=== PATIENT | male | born 1990 | race Caucasian/White ===

== ENCOUNTER 2024-06-19 20:40 | Emergency (ER) | payer OTHER, SELFPAY ==
--- NOTE | ~2024-06-19 | XR_ITS ---
EXAMINATION: XR WRIST, RIGHT CLINICAL INFORMATION: Concern for foreign body COMPARISON: None available. TECHNIQUE: PA, lateral, oblique, and scaphoid views of the right wrist. FINDINGS: Soft tissue laceration of the ulnar side of the wrist. No radiopaque foreign body. No osseous abnormality. Bone and joint are normal. XR/XR wrist RT 2V IMPRESSION: Soft tissue laceration of the ulnar side of the wrist. No radiopaque foreign body. Electronically signed by: Rg Abdalla MD 06/19/2024 09:41 PM EDT
[2024-06-19 20:49] VITALS: BP 123/54; PULSE 85; RESP 16; TEMP 36.6; O2SAT 95; BMI 25.1
--- NOTE | 2024-06-19 20:49 | ED.WOUNDLAC ---
HPI - Wound/Laceration General Chief Complaint: Wound/Laceration Stated Complaint: rt arm laceration/broken glass Time Seen by Provider: 06/19/24 22:05 Related Data Allergies Allergy/AdvReac Type Severity Reaction Status Date / Time amoxicillin Allergy Hives Verified 06/19/24 20:51 Penicillins Allergy Hives Verified 06/19/24 20:51 shellfish derived Allergy Shortness Verified 06/19/24 20:51 of Breath PMFSH Social History Social History Advance Directives: No Advance Directives Information Provided: No Physical Exam Vital Signs: Vital Signs: Last Vital Signs Temp 98.9 F 06/19/24 23:10 Pulse 75 06/19/24 23:10 Resp 16 06/19/24 23:10 BP 107/69 06/19/24 23:10 Pulse Ox 96 06/19/24 23:10 O2 Del Method Room Air 06/19/24 23:10 BMI result Body Mass Index 25.1 Course Course Course Narrative: This is a Rapid Medical Exam performed in triage by Amanda Smith PA-C. Full HPI, ROS and PE to be performed by primary ED provider. 34 yo M presenting to the ED c/o laceration to RUE s/p cleaning metal container [employer]. Unknown in glass in wound. Tetanus unknown. not on AC PE: +1.5cm lac to R wrist. +active bleeding Plan: XR, wound repair Medications Administered Discontinued Medications Generic Name Dose Route Start Last Admin Trade Name Freq PRN Reason Stop Dose Admin Lidocaine HCl 5 ml 06/19/24 22:29 06/19/24 22:32 Lidocaine Hcl 1 % Mpf 5 Ml Vial INFILTRATI 06/19/24 22:30 5 ml ONCE ONE Administration Discharge Plan Discharge Clinical Impression: Laceration Patient Disposition: Home, Self-Care Instructions: Laceration (ED) Additional Instructions: Local care as advised Suture removal in 10-14 days Interventions: ED Discharge Assessment Last Done: 06/19/24 23:10 Discharge Date/Time: 06/19/24 23:10 Print Language: Luxembourgish
[2024-06-19] MEDS: Lidocaine HCl 1 % MPF 5 ML VIAL INFILTRATI (22:32)
[2024-06-19 22:35] VITALS: BP 107/69; PULSE 75; RESP 16; TEMP 37.2; O2SAT 96
[2024-06-19 23:10] VITALS: BP 107/69; PULSE 75; RESP 16; TEMP 37.2; O2SAT 96
--- NOTE | 2024-06-20 01:29 | ED_ITS ---
HPI - Wound/Laceration General Chief Complaint: Wound/Laceration Stated Complaint: rt arm laceration/broken glass Time Seen by Provider: 06/19/24 22:05 Source: patient Mode of arrival: ambulatory Limitations: no limitations History of Present Illness ED Provider: christelle HPI narrative: Patient apparently got superficial laceration to right wrist area while patient was cleaning storm door maker which broke in his hand no other injuries Related Data Allergies Allergy/AdvReac Type Severity Reaction Status Date / Time amoxicillin Allergy Hives Verified 06/19/24 20:51 Penicillins Allergy Hives Verified 06/19/24 20:51 shellfish derived Allergy Shortness Verified 06/19/24 20:51 of Breath Review of Systems 2 Review of Systems: Yes all other systems are reviewed and are negative PMFSH Social History Social History Advance Directives: No Advance Directives Information Provided: No Physical Exam 2 Vital Signs: Vital Signs: Last Vital Signs Temp 98.9 F 06/19/24 23:10 Pulse 75 06/19/24 23:10 Resp 16 06/19/24 23:10 BP 107/69 06/19/24 23:10 Pulse Ox 96 06/19/24 23:10 O2 Del Method Room Air 06/19/24 23:10 BMI result Body Mass Index 25.1 Extrem: Hand/finger images: 1. 1.5 cm long laceration at the base of right hand with minor oozing neurovascular intact Medications Administered Discontinued Medications Generic Name Dose Route Start Last Admin Trade Name Freq PRN Reason Stop Dose Admin Lidocaine HCl 5 ml 06/19/24 22:29 06/19/24 22:32 Lidocaine Hcl 1 % Mpf 5 Ml Vial INFILTRATI 06/19/24 22:30 5 ml ONCE ONE Administration Procedures Laceration Laceration 1: Site: hand Side (If applicable): right Size (cm): 1.5 Description: linear Depth: simple, single layer Local Anesthetic: lidocaine 1% Amount of anesthesia used (mL): 2 Pre-repair: wound explored Skin layer closed with: nylon Size (cm): 5-0 Number of sutures: 5 Technique: simple, interrupted Discharge Plan Discharge Clinical Impression: Laceration Patient Disposition: Home, Self-Care Instructions: Laceration (ED) Additional Instructions: Local care as advised Suture removal in 10-14 days Interventions: ED Discharge Assessment Last Done: 06/19/24 23:10 Discharge Date/Time: 06/19/24 23:10 Print Language: Bulgarian
== END 2024-06-19 23:10 | disposition home or self-care (01) ==
PROVIDERS: Emergency Provider Internal Medicine
DX: S61.511A Laceration without foreign body of right wrist, initial encounter (principal); W25.XXXA Contact with sharp glass, initial encounter; Y93.G1 Activity, food preparation and clean up; Y92.219 Unspecified school as the place of occurrence of the external cause; Y99.0 Civilian activity done for income or pay
CPT/HCPCS: 12001; 73100; 99282; 99284; J2003

== ENCOUNTER 2024-07-03 10:08 | Emergency (ER) | payer OTHER, SELFPAY ==
[2024-07-03 10:10] VITALS: BP 103/70; PULSE 83; RESP 18; TEMP 37; O2SAT 97; BMI 26.6
--- NOTE | 2024-07-03 10:17 | ED.RECABL ---
HPI - Recheck/Abnormal Lab/Rx General Chief Complaint: Recheck/Abnormal Lab/Rx Stated Complaint: need stiches removed Time Seen by Provider: 07/03/24 10:16 Source: patient Mode of arrival: ambulatory Limitations: no limitations History of Present Illness ED Provider: BEE HUSSEIN PA-C HPI narrative: 34 year old male with no significant pmhx presents to the ED today requesting removal of sutures. Reports laceration to the ulnar aspect of his right wrist sustained while cleaning his core maker. He presented shortly after and had 4 sutures placed to the wrist. reports his xray was normal. advised to return to the ED in 10-14 days for removal. States the area has been healing well. Denies noted redness, drainage or increased pain. Denies fever, chills. Related Data Allergies Allergy/AdvReac Type Severity Reaction Status Date / Time amoxicillin Allergy Hives Verified 07/03/24 10:10 Penicillins Allergy Hives Verified 07/03/24 10:10 shellfish derived Allergy Shortness Verified 07/03/24 10:10 of Breath Review of Systems Review of Systems: Constitutional: No fever, chills, fatigue, night sweats, weight changes ENT/Mouth: No ear pain, hearing loss, nasal congestion, sinus pain, rhinorrhea, sore throat Eyes: No eye pain, swelling, redness, vision changes, discharge Cardio: No chest pain, palpitations, ARANA, orthopnea, peripheral edema Pulm: No SOB, cough, sputum, wheezing, dyspnea, hemoptysis GI: No nausea, vomiting, hematemesis, abdominal pain, diarrhea, constipation, hematochezia, melena : No irregular bleeding, dysuria, frequency, urgency, hesitancy, hematuria, flank pain, urinary flow changes, urinary incontinence or retention MSK: No back pain, neck pain, joint pain, myalgias Skin: No lesions, rashes, + healing laceration to right wrist Neuro: No weakness, numbness, paresthesias, LOC, dizziness, headache Psych: No anxiety/panic, depression, SI/HI, AH/VH All other systems reviewed and are negative. [facility] Past Medical History Attestation statement: The following information was validated with the patient. Source: old records reviewed and nursing notes reviewed Social History Social History Advance Directives: No Advance Directives Information Provided: Yes Do you have a plan to hurt others: No Plan Physical Exam Vital Signs: Vital Signs: Last Vital Signs Temp 98.6 F 07/03/24 10:10 Pulse 83 07/03/24 10:10 Resp 18 07/03/24 10:10 BP 103/70 07/03/24 10:10 Pulse Ox 97 07/03/24 10:10 O2 Del Method Nasal Cannula 07/03/24 10:10 BMI result Body Mass Index 26.6 Vital signs stable. Afebrile. General: Well appearing, in no acute distress. Skin: +1.5 cm linear healing laceration noted to ulnar aspect of left wrist with [address] No signs of dehiscence. No oozing. No drainage. No bleeding. Neurovascularly intact distally. Head: Normocephalic, atraumatic. EENT: Hearing is intact b/l. PERRLA. EOM intact. Moist mucous membranes.? Cardiac: Chest wall symmetric. RRR Lungs: Normal respiratory effort without accessory muscle use Ext: +see above Neuro: AOx3. Normal speech. Ambulating with steady gait. Psych: Appropriate mood and affect. Responds appropriately to questions. Course Course Course Narrative: Sutures removed. Patient tolerated well. Two Steri-Strips applied. Patient has remained stable throughout ED visit today. Discussed worrisome signs and symptoms and when to return to the ED. All questions answered at this time. Patient is agreeable with disposition and stable for discharge. Medical Decision Making Medical Decision Making MDM Narrative: 34 year old male with no significant pmhx presents to the ED today requesting removal of sutures. Vital signs stable, afebrile. He is nontoxic-appearing and in no acute distress. There is a 1.5 cm linear healing laceration noted to ulnar aspect of right wrist with [address] No signs of dehiscence. No oozing. No drainage. No bleeding. Neurovascularly intact distally. Full range of motion intact to right wrist. Differential diagnosis includes healing laceration, suture placement. No concern for dehiscence, cellulitis, infection Plan for suture removal. Differential Diagnosis Differential Diagnoses: The differential diagnosis associated with the presentation includes As above Admission/Observation Not indicated Independent Interpretation I performed an independent interpretation of an: Plain X-Ray Interpretation: X-ray right wrist obtained on 06/19/24 showing soft tissue laceration, no foreign body Radiology Impression Discussion of test interpretation with radiology: I have reviewed the radiologist's reading. Radiologist Impression: EXAMINATION: XR WRIST, RIGHT CLINICAL INFORMATION: Concern for foreign body COMPARISON: None available. TECHNIQUE: PA, lateral, oblique, and scaphoid views of the right wrist. FINDINGS: Soft tissue laceration of the ulnar side of the wrist. No radiopaque foreign body. No osseous abnormality. Bone and joint are normal. XR/XR wrist RT 2V IMPRESSION: Soft tissue laceration of the ulnar side of the wrist. No radiopaque foreign body. Electronically signed by: Rg Abdalla MD 06/19/2024 09:41 PM EDT RP External Record Review External record reviewed: Inpatient record Prescription Management I considered prescription management with: Pain Medication Social Determinants Patient?s care significantly limited by Social Determinants of Health including: Other Social Determinant of Health Critical Care Time Critical Care Time Critical Care Time: No Discharge Plan Discharge Clinical Impression: Encounter for removal of sutures Patient Disposition: Home, Self-Care Instructions: Steristrips (ED), Stitches Removal (ED) Additional Instructions: You have been evaluated in the Emergency Department today for suture removal.? Your sutures were removed and your wound is healing well.? You can wash the area freely now. Keep your wound out of the sunlight for six months to reduce the appearance of scarring. You should cover your scar or use high SPF sunscreen protection. Please follow up with your primary care provider at your next scheduled appointment. Return to the ER immediately signs of infection to your wounds such as worsening pain, worsening redness/swelling, discharge/pus from your wounds, or for any other concerning symptoms. Print Language: Ecuadorean
[2024-07-03 10:30] VITALS: BP 103/70; PULSE 83; RESP 18; TEMP 37; O2SAT 97
== END 2024-07-03 10:31 | disposition home or self-care (01) ==
PROVIDERS: Emergency Provider Emergency Medicine
DX: Z48.02 Encounter for removal of sutures (principal)
CPT/HCPCS: 99282